=== PATIENT | female | born 1950 ===

== ENCOUNTER 2021-11-02 10:29 | Inpatient (IN) | payer MEDICARE ==
[2021-11-02] MEDS ORDERED: niCARdipine 25 MG/10 ML VIAL ONE (10:51)
[2021-11-02 11:01] LABS: #Eosinphils 0.3 thou/uL (0.0-0.7); #Lymphocytes 1.9 thou/uL (1.20-3.40); #Monocytes 0.5 thou/uL (0.11-0.59); #Neutrophils 5.2 thou/uL (1.40-6.50); %Basophils 0.2 % (0.0-1.0); %Eosinophils 3.3 % (0.0-10.0); %Lymphocytes 24.6 % (21.0-51.0); %Neutrophils 65.9 % (42.0-75.0); Hemoglobin 15.6 g/dL (12.0-16.0); Mean Corpuscular HGB CONC 33.7 g/dL (32.0-36.0); Mean Corpuscular Hemoglobin 31.2 pg (27.0-31.0); Mean Corpuscular Volume 92.6 fL (78.0-98.0); Mean Platelet Volume 9.7 fL (7.4-10.4); Platelet Count 272 thou/uL (130-400); RBC Distribution Width 12.7 % (11.5-14.5); Red Blood Cell (RBC) Count 5.01 mill/uL (4.20-5.40); White Blood Cell (WBC) Count 7.9 thou/uL (4.8-10.8)
[2021-11-02 11:12] LABS: INR-International Normal Ratio 0.9; Prothrombin Time 12.4 sec (12.0-14.7)
[2021-11-02] MEDS ORDERED: Iopamidol-370 76% 500 ML 1 ML ONE (11:29)
[2021-11-02] MEDS ORDERED: Aspirin Chewable 81 MG TAB ONE (11:34)
[2021-11-02 12:46] LABS: ALT (SGPT) 24 U/L (8-55); AST (SGOT) 37 U/L (5-34); Albumin 4.2 g/dL (3.4-4.8); Alkaline Phosphatase 72 U/L (40-110); Anion Gap 18 mmol/L (10-20); BUN (Urea Nitrogen) 13 mg/dL (9.8-20.1); Bilirubin, Total 0.5 mg/dL (0.2-1.2); Calc. Creatinine Clearance 0 mL/min (70-130); Calcium 8.9 mg/dL (7.8-10.44); Carbon Dioxide 22 mmol/L (23-31); Chloride 107 mmol/L (98-107); Globulin 3.5 g/dL (2.4-3.5); Glucose 130 mg/dL (83-110); Potassium 4.6 mmol/L (3.5-5.1); Protein, Total 7.7 g/dL (5.8-8.1); Sodium 142 mmol/L (136-145)
[2021-11-02] MEDS ORDERED: Guaifenesin DM 100-10/5 ML UDCUP PO PRN (13:06)
[2021-11-02] MEDS ORDERED: hydrALAZINE 20 MG/ML VIAL SLOW IVP PRN (13:06)
[2021-11-02] MEDS ORDERED: Acetaminophen 325 MG TAB PO PRN (13:06)
[2021-11-02] MEDS ORDERED: Ondansetron ODT 4 MG TAB PO PRN (13:06)
[2021-11-02] MEDS ORDERED: Ondansetron PF 4 MG/2 ML Vial IVP PRN (13:06)
[2021-11-02] MEDS ORDERED: Diazepam 10 MG/2 ML SYRINGE IVP PRN (13:10)
[2021-11-02 17:36] VITALS: BMI 34.7
[2021-11-02] MEDS: Atorvastatin Calcium 40 MG TAB PO SCH (21:05)
[2021-11-02] MEDS: Famotidine 20 MG TAB PO SCH (21:05)
[2021-11-02 21:45] LABS: SARS-CoV-2 PCR by NAA Not Detected (NotDetected)
[2021-11-03 05:24] LABS: Cardiac Risk 4.7 (Less than 4.5)
[2021-11-03] MEDS: Aspirin 81 mg Enteric Coated Tablet PO SCH (09:00)
[2021-11-03] MEDS: Enoxaparin Sodium 40 MG/0.4 ML SYRINGE SC SCH (09:00)
[2021-11-03] MEDS ORDERED: Diltiazem 125 MG in Sodium Chloride 0.9% 100 ML IVPB SCH (12:45)
[2021-11-03] MEDS: Diltiazem HCl 125 MG in Premix Bag 1 BAG IVPB SCH (14:03)
[2021-11-03] MEDS ORDERED: Digoxin 0.5 MG/2 ML AMP SLOW IVP SCH (15:00)
[2021-11-03] MEDS ORDERED: Digoxin 0.5 MG/2 ML AMP SLOW IVP PRN (17:08)
[2021-11-03] MEDS: Famotidine 20 MG TAB PO SCH (21:22)
[2021-11-03] MEDS: Atorvastatin Calcium 40 MG TAB PO SCH (21:22)
[2021-11-04] MEDS: Enoxaparin Sodium 40 MG/0.4 ML SYRINGE SC SCH (09:41)
[2021-11-04] MEDS: Aspirin 81 mg Enteric Coated Tablet PO SCH (09:41)
[2021-11-04] MEDS: Famotidine 20 MG TAB PO SCH (20:48)
[2021-11-04] MEDS: Atorvastatin Calcium 40 MG TAB PO SCH (20:48)
[2021-11-05 05:23] LABS: #Eosinphils 0.1 thou/uL (0.0-0.7); #Lymphocytes 1.7 thou/uL (1.20-3.40); #Monocytes 0.6 thou/uL (0.11-0.59); #Neutrophils 5.6 thou/uL (1.40-6.50); %Basophils 0.5 % (0.0-1.0); %Eosinophils 1.7 % (0.0-10.0); %Lymphocytes 20.6 % (21.0-51.0); %Monocytes 7.7 % (0.0-10.0); %Neutrophils 69.5 % (42.0-75.0); Hemoglobin 15.3 g/dL (12.0-16.0); Mean Corpuscular HGB CONC 33.1 g/dL (32.0-36.0); Mean Corpuscular Hemoglobin 30.4 pg (27.0-31.0); Mean Corpuscular Volume 91.6 fL (78.0-98.0); Mean Platelet Volume 8.7 fL (7.4-10.4); Platelet Count 267 thou/uL (130-400); RBC Distribution Width 12.5 % (11.5-14.5); Red Blood Cell (RBC) Count 5.05 mill/uL (4.20-5.40); White Blood Cell (WBC) Count 8.1 thou/uL (4.8-10.8)
[2021-11-05 05:44] LABS: Anion Gap 13 mmol/L (10-20); BUN (Urea Nitrogen) 17 mg/dL (9.8-20.1); Calc. Creatinine Clearance 61 mL/min (70-130); Carbon Dioxide 25 mmol/L (23-31); Chloride 103 mmol/L (98-107); Glucose 127 mg/dL (83-110); Potassium 3.5 mmol/L (3.5-5.1); Sodium 137 mmol/L (136-145)
[2021-11-05] MEDS: Diltiazem HCl 125 MG in Premix Bag 1 BAG IVPB SCH (08:41)
[2021-11-05] MEDS: Aspirin 81 mg Enteric Coated Tablet PO SCH (08:43)
[2021-11-05] MEDS: Enoxaparin Sodium 40 MG/0.4 ML SYRINGE SC SCH (08:43)
[2021-11-05] MEDS ORDERED: Metoprolol Tartrate 25 MG TAB PO SCH (13:30)
[2021-11-05] MEDS ORDERED: Electrolyte Replacement Protocol 1 EACH FS PRN (14:30)
[2021-11-05] MEDS ORDERED: Potassium Chloride 20 MEQ TAB PO SCH (17:45)
[2021-11-05] MEDS ORDERED: Electrolyte Replacement Protocol FS PRN (17:45)
[2021-11-05] MEDS ORDERED: cloNIDine 0.1 MG TAB PO PRN (18:04)
[2021-11-05] MEDS: Atorvastatin Calcium 40 MG TAB PO SCH (20:49)
[2021-11-05] MEDS: Famotidine 20 MG TAB PO SCH (20:49)
[2021-11-05] MEDS: Metoprolol Tartrate 25 MG TAB PO SCH (20:50)
[2021-11-06 05:51] LABS: Anion Gap 12 mmol/L (10-20); BUN (Urea Nitrogen) 19 mg/dL (9.8-20.1); Calc. Creatinine Clearance 64 mL/min (70-130); Carbon Dioxide 26 mmol/L (23-31); Chloride 104 mmol/L (98-107); Glucose 123 mg/dL (83-110); Magnesium 1.6 mg/dL (1.6-2.6); Potassium 3.7 mmol/L (3.5-5.1); Sodium 138 mmol/L (136-145)
[2021-11-06] MEDS: Magnesium 2 GM/50 ML(in water) 2 GM in Premix Bag 1 BAG IVPB SCH ×2 (08:05→10:50)
[2021-11-06] MEDS: Enoxaparin Sodium 40 MG/0.4 ML SYRINGE SC SCH (08:06)
[2021-11-06] MEDS: Aspirin 81 mg Enteric Coated Tablet PO SCH (08:06)
[2021-11-06] MEDS: Metoprolol Tartrate 25 MG TAB PO SCH (08:06)
[2021-11-06] MEDS ORDERED: Metoprolol Tartrate 25 MG TAB PO SCH (10:00)
[2021-11-06] MEDS: Metoprolol Tartrate 50 MG TAB PO SCH (20:27)
[2021-11-06] MEDS: Famotidine 20 MG TAB PO SCH (20:27)
[2021-11-06] MEDS: Atorvastatin Calcium 40 MG TAB PO SCH (20:27)
[2021-11-07 05:33] LABS: Anion Gap 13 mmol/L (10-20); BUN (Urea Nitrogen) 18 mg/dL (9.8-20.1); Calc. Creatinine Clearance 69 mL/min (70-130); Calcium 9.1 mg/dL (7.8-10.44); Carbon Dioxide 25 mmol/L (23-31); Chloride 106 mmol/L (98-107); Glucose 138 mg/dL (83-110); Magnesium 1.6 mg/dL (1.6-2.6); Potassium 3.6 mmol/L (3.5-5.1); Sodium 140 mmol/L (136-145)
[2021-11-07] MEDS ORDERED: Magnesium 2 GM/50 ML(in water) 2 GM in Premix Bag 1 BAG IVPB SCH (08:00)
[2021-11-07] MEDS: Enoxaparin Sodium 40 MG/0.4 ML SYRINGE SC SCH (08:08)
[2021-11-07] MEDS: Aspirin 81 mg Enteric Coated Tablet PO SCH (08:09)
[2021-11-07] MEDS: Metoprolol Tartrate 50 MG TAB PO SCH (08:09)
[2021-11-07] MEDS ORDERED: Colchicine 0.6 MG TAB PO SCH ×2 (14:30→16:00)
[2021-11-07] MEDS: Apixaban 5 MG TAB PO SCH (20:48)
[2021-11-07] MEDS: Metoprolol Tartrate 25 MG TAB PO SCH (20:49)
[2021-11-07] MEDS: Famotidine 20 MG TAB PO SCH (20:49)
[2021-11-07] MEDS: Atorvastatin Calcium 40 MG TAB PO SCH (20:49)
[2021-11-08 05:00] LABS: #Eosinphils 0.2 thou/uL (0.0-0.7); #Lymphocytes 1.2 thou/uL (1.20-3.40); #Monocytes 1.1 thou/uL (0.11-0.59); #Neutrophils 10.6 thou/uL (1.40-6.50); %Basophils 0.3 % (0.0-1.0); %Eosinophils 1.5 % (0.0-10.0); %Lymphocytes 9.2 % (21.0-51.0); %Monocytes 8.1 % (0.0-10.0); %Neutrophils 80.9 % (42.0-75.0); Hemoglobin 15.2 g/dL (12.0-16.0); Mean Corpuscular HGB CONC 31.7 g/dL (32.0-36.0); Mean Corpuscular Hemoglobin 30.3 pg (27.0-31.0); Mean Corpuscular Volume 95.5 fL (78.0-98.0); Mean Platelet Volume 8.8 fL (7.4-10.4); Platelet Count 257 thou/uL (130-400); RBC Distribution Width 12.6 % (11.5-14.5); Red Blood Cell (RBC) Count 5.03 mill/uL (4.20-5.40); White Blood Cell (WBC) Count 13.1 thou/uL (4.8-10.8)
[2021-11-08 05:22] LABS: Anion Gap 13 mmol/L (10-20); BUN (Urea Nitrogen) 20 mg/dL (9.8-20.1); Calc. Creatinine Clearance 72 mL/min (70-130); Calcium 8.8 mg/dL (7.8-10.44); Carbon Dioxide 24 mmol/L (23-31); Chloride 103 mmol/L (98-107); Glucose 153 mg/dL (83-110); Magnesium 1.9 mg/dL (1.6-2.6); Potassium 3.8 mmol/L (3.5-5.1); Sodium 136 mmol/L (136-145)
[2021-11-08] MEDS ORDERED: Magnesium 2 GM/50 ML(in water) 2 GM in Premix Bag 1 BAG IVPB SCH (06:00)
[2021-11-08 07:59] VITALS: BP 168/88; TEMP 98.7
[2021-11-08] MEDS: Apixaban 5 MG TAB PO SCH (08:59)
[2021-11-08] MEDS: Metoprolol Tartrate 25 MG TAB PO SCH (08:59)
[2021-11-08] MEDS ORDERED: Colchicine 0.6 MG TAB PO SCH ×2 (09:30→21:00)
== END 2021-11-08 10:55 | disposition home or self-care (01) | DRG 65 ==
LOC: ERS 10:29 → ERHOLD 12:13 → NEURO 16:41
PROVIDERS: ADMIT Internal Medicine; ATTEND Internal Medicine
DX: I63.412 Cerebral infarction due to embolism of left middle cerebral artery (principal); R29.705 NIHSS score 5; Z20.822 Contact with and (suspected) exposure to COVID-19; N17.9 Acute kidney failure, unspecified; R47.01 Aphasia; M10.9 Gout, unspecified; I48.91 Unspecified atrial fibrillation; I12.9 Hypertensive chronic kidney disease with stage 1 through stage 4 chronic kidney disease, or unspecified chronic kidney disease; E83.42 Hypomagnesemia; R79.89 Other specified abnormal findings of blood chemistry; E78.5 Hyperlipidemia, unspecified; N18.32 Chronic kidney disease, stage 3b; G83.21 Monoplegia of upper limb affecting right dominant side; E66.9 Obesity, unspecified; Z68.34 Body mass index [BMI] 34.0-34.9, adult; Z90.710 Acquired absence of both cervix and uterus; Z90.49 Acquired absence of other specified parts of digestive tract; Z82.49 Family history of ischemic heart disease and other diseases of the circulatory system; Z79.899 Other long term (current) drug therapy
CPT/HCPCS: 36415; 70450; 70496; 70498; 70551; 80048; 80053; 80061; 83735; 84443; 84484; 85025; 85610; 85730; 93005; 93306; 95712; 95819; 95957; J1650; J3475; Q9967; U0003; U0005